=== PATIENT | female | born 1975 | race Caucasian/White ===

== ENCOUNTER 2022-03-29 07:39 | Emergency (ER) | payer MEDICAID ==
[~2022-03-29] VITALS: Ht 167.6 cm; Wt 75.3 kg
[~2022-03-29 07:39] MED LIST: MED4 PO; NAPR-690 PO; NEU300 PO
[2022-03-29 07:48] VITALS: BP_SYST 106
--- NOTE | 2022-03-29 07:50 | NUR ---
Patient triaged and placed in waiting room. VSS and patient appears in no acute distress at this time. Accompanied by SELF, awaiting available bed, and MD notified of need for MSE.
--- NOTE | 2022-03-29 08:20 | NUR ---
ER DR. SALAZAR EXAMINING PT IN TRIAGE
[2022-03-29] MEDS ORDERED: IBUP-1969 PO (08:46)
[2022-03-29] MEDS ORDERED: AZIT-93 PO (08:46)
[2022-03-29] MEDS ORDERED: PSEU120T57 PO (08:46)
[2022-03-29] MEDS ORDERED: FLOEARD LEFT EAR (08:48)
--- NOTE | 2022-03-29 09:11 | NUR ---
Patient given written and verbal discharge instructions and verbalizes understanding. ER MD discussed with patient the results and treatment provided. Patient in stable condition. ID arm band removed. Rx of AZITHROMYCIN, OFLOXACIN, IBUPROFEN AND SUDAFED given. Patient educated on pain management and to follow up with PMD. Pain Scale 0/10. Opportunity for questions provided and answered. Medication side effect fact sheet provided.
[2022-03-29 09:12] VITALS: BP_SYST 106
== END 2022-03-29 09:11 | disposition home or self-care (01) ==
LOC: SED 07:39
DX: H61.22 Impacted cerumen, left ear (principal); H92.02 Otalgia, left ear; H66.92 Otitis media, unspecified, left ear; Z88.0 Allergy status to penicillin; Z79.899 Other long term (current) drug therapy
CPT/HCPCS: 99283